=== PATIENT | female | born 1970 | race Caucasian/White ===

== ENCOUNTER 2019-02-27 16:24 | Emergency (ER) | payer OTHER ==
[2019-02-27 16:50] VITALS: BP 116/79; PULSE 74; O2SAT 99
--- NOTE | 2019-02-27 17:10 | ERPHSYRPT ---
- History of Present Illness Time Seen by Provider: 02/27/19 17:06 Source: patient Exam Limitations: no limitations Patient Subjective Stated Complaint: patient states for 3 weeks pain in right knee, states pain has increasedx in the last three days, today she had her knee buckle and she has not been able to put weight on it since then, states she feels like something has torn in her knee Triage Nursing Assessment: patient in wheelchair, assisited to room with assistence, patient noted to only toe touch weight bear on right leg. noted right knee brace on at admission. Physician History: 49-year-old white female with history of migraines, bronchitis, pneumonia, high blood pressure, arthritis. Patient arrives with complaint of pain in her right knee symptoms for 3 weeks. She states that she had thr right knee buckle at the onset of her pain feels like she's torn something in her knee she states for the past 3 days she cannot stand on her right leg because of pain in the right knee. Past medical history includes migraines, bronchitis, pneumonia, high blood pressure, arthritis. Past surgical history includes tonsillectomy and adenoidectomy, cholecystectomy , hysterectomy, joint replacement in her left finger Method of Injury: unknown Occurred: other (3 weeks ago worse past 3 days) Severity of Pain-Max: moderate Severity of Pain-Current: moderate Lower Extremities Pain: knee: right Modifying Factors: Improves With: movement Associated Symptoms: unable to bear weight Allergies/Adverse Reactions: erythromycin base [From Erythrocin] Allergy (Verified 02/27/19 16:51) Home Medications: Hydrocodone Bit/Acetaminophen [Dyer 10-325 Tablet] 02/27/19 [History] Lisinopril 20 mg [Zestril 20 MG] 20 mg DAILY 02/27/19 [History] Hx Tetanus, Diphtheria Vaccination/Date Given: No Hx Influenza Vaccination/Date Given: No Hx Pneumococcal Vaccination/Date Given: No Immunizations Up to Date: Yes - Review of Systems Constitutional: No Fever, No Chills Eyes: No Symptoms Ears, Nose, & Throat: No Symptoms Respiratory: No Cough, No Dyspnea Cardiac: No Chest Pain, No Edema, No Syncope Abdominal/Gastrointestinal: No Abdominal Pain, No Nausea, No Vomiting, No Diarrhea Genitourinary Symptoms: No Dysuria Musculoskeletal: Arthralgias (right knee pain), Injury, Joint Pain (right knee pain), No Back Pain, No Neck Pain, No Deformity, No Fall, No Joint Redness, No Joint Swelling, No Myalgias Skin: No Rash Neurological: No Dizziness, No Focal Weakness, No Sensory Changes Psychological: No Symptoms Endocrine: No Symptoms All Other Systems: Reviewed and Negative - Past Medical History Pertinent Past Medical History: Yes Neurological History: Migraines ENT History: Other Cardiac History: Hypertension Respiratory History: Bronchitis, Pneumonia Endocrine Medical History: No Pertinent History Musculoskeletal History: Arthritis GI Medical History: No Pertinent History History: No Pertinent History Psycho-Social History: No Pertinent History Female Reproductive Disorders: Menstrual Problems - Past Surgical History Past Surgical History: Yes Neuro Surgical History: No Pertinent History Cardiac: No Pertinent History Respiratory: No Pertinent History Gastrointestinal: Cholecystectomy Genitourinary: No Pertinent History Musculoskeletal: Joint Replacement Female Surgical History: Hysterectomy - Social History Smoking Status: Never smoker Exposure to second hand smoke: No Drug Use: none Patient Lives Alone: Yes - Female History Hx Last Menstrual Period: 2013 Hx Now: No - Nursing Vital Signs Nursing Vital Signs: Initial Vital Signs Temperature 97.8 F 02/27/19 16:35 Pulse Rate 74 02/27/19 16:35 Respiratory Rate 14 02/27/19 16:35 Blood Pressure 116/79 02/27/19 16:35 O2 Sat by Pulse Oximetry 99 02/27/19 16:35 Pain Scale Pain Intensity 7 - Physical Exam General Appearance: alert Eyes, Ears, Nose, Throat Exam: moist mucous membranes Neck Exam: non-tender, supple Cardiovascular/Respiratory Exam: chest non-tender, normal breath sounds, regular rate/rhythm, no respiratory distress Gastrointestinal/Abdominal Exam: non-tender, guarding Back Exam: normal inspection, No vertebral tenderness Hips Exam: bilateral: non-tender, normal inspection, normal range of motion, no evidence of injury Legs Exam: bilateral leg: non-tender, normal inspection, normal range of motion , no evidence of injury Knees Exam: right knee: other (rright knee pain with palpation inferiorly and anteriorly. Decreased range of motion right knee secondary to pain), left knee : non-tender, normal inspection, normal range of motion Ankle Exam: bilateral ankle: non-tender, normal inspection, normal range of motion, no evidence of injury Foot Exam: bilateral foot: non-tender, normal inspection, normal range of motion , no evidence of injury Neuro/Tendon Exam: normal sensation, normal motor functions Mental Status Exam: alert, oriented x 3, cooperative Skin Exam: normal color, warm, dry SpO2 Interpretation: normal (99%) SpO2: 99 - Course Nursing assessment & vital signs reviewed: Yes - Radiology Exams Right Knee X-ray Interpretation: Interpreted by me, Negative, No Fracture, No Subluxation Ordered Tests: Active Orders 24 hr Category Date Time Status Immobilizer STAT Care 02/27/19 17:40 Active KNEE (3 VIEWS) Stat Exams 02/27/19 17:05 Taken - Progress Progress: improved Progress Note: 02/27/19 17:42 49-year-old white female arrives with complaint of right knee pain for 3 weeks she states that her right knee buckled and she had a tearing sensation in her knee she's been having pain in her right knee which has been worse for the past 3 days she states she is unable to support weight on her right knee secondary to pain she has pain with movement of her right knee and pain in the anterior knee inferior to the patella with palpation. X-ray the patient's right knee (my read no fractures no subluxation). Patient does not want any pain medication. Will go ahead and place right knee immobilizer. Offered the patient scratches she states she better have a cane. There is apparently no pains available here however they do cell these at [facility]. Will go ahead and have the nurse apply right knee immobilizer of breath the patient to ice and elevate her knee 24-48 hours she will need to followup with her family secondary to d duration of her pain. - Departure Departure Disposition: Home Clinical Impression: Right knee pain Qualifiers: Chronicity: acute Qualified Code(s): M25.561 - Pain in right knee Strain of right knee Qualifiers: Encounter type: initial encounter Qualified Code(s): S86.911A - Strain of unspecified muscle(s) and tendon(s) at lower leg level, right leg, initial encounter Condition: Fair Critical Care Time: No Referrals: MARK CHILDRESS [Primary Care Provider] - Instructions: Knee Pain (DC) Additional Instructions: Return home. Ice the right knee 24-48 hours. Use immobilizer right knee 48-72 hours longer if pain persist. Weightbearing as tolerated right knee you may try a cane however, you might need crutches to take full weight off of the right lower extremity. Advil 2-3 tablets orally every 6 hours as needed for pain. Tylenol every 4 hours as needed for pain. Followup with your family physician. (Or list) Return for acute distress or for severe symptoms. Your x-rays have been preliminarily read they will be reread in the morning you'll be contacted if any discrepancies are noted.
--- NOTE | 2019-02-28 08:44 | XRAY ---
Indication: Pain. No known injury. Comparison: None 4 views of the right knee demonstrates mild medial joint space narrowing/spurring and tiny posterior medial knee fabella versus heterotopic ossification. Mild spurring of the patella and tibial tuberosity. Patellofemoral articulation symmetric. No other bony, articular, or soft tissue abnormalities. Impression: Nonacute right knee with chronic features.
== END 2019-02-27 18:00 | disposition home or self-care (01) ==
LOC: ED 16:24
DX: M25.561 Pain in right knee (principal); S86.911A Strain of unspecified muscle(s) and tendon(s) at lower leg level, right leg, initial encounter; X50.0XXA Overexertion from strenuous movement or load, initial encounter; M19.90 Unspecified osteoarthritis, unspecified site
CPT/HCPCS: 73562; 99283